=== PATIENT | male | born 1960 | race African-American/Black ===

== ENCOUNTER 2024-06-12 07:05 | Emergency (ER) | payer SELFPAY ==
[~2024-06-12] VITALS: Ht 175.3 cm; Wt 70.0 kg
[2024-06-12 07:08] VITALS: BP 0/0; PULSE 0
== END 2024-06-12 07:28 ==
LOC: ER 07:05
DX: I46.9 Cardiac arrest, cause unspecified (principal); I10 Essential (primary) hypertension; I49.01 Ventricular fibrillation; Z86.79 Personal history of other diseases of the circulatory system; Z85.048 Personal history of other malignant neoplasm of rectum, rectosigmoid junction, and anus; Z79.01 Long term (current) use of anticoagulants; Z79.899 Other long term (current) drug therapy
CPT/HCPCS: 31500; 92950; 99285; Z7610